=== PATIENT | male | born 1975 | race Caucasian/White ===

== ENCOUNTER 2019-03-22 20:56 | Emergency (ER) | payer OTHER ==
--- NOTE | 2019-03-22 21:12 | ED ---
Neurological HPI - HPI Summary HPI Summary: Ernie Angelo called at 20:40, with ETA [address] Lopez saw pt as soon as he arrived at 20:56. This patient is a 43 year old M presenting to [facility] by EMS with a chief complaint of impaired speech since 1999. According to EMS, pt was watching a baseball game, when all of a sudden he could not talk. EMS also report pts right side was weaker, and slight facial droop. Pt could not properly answer questions about when symptoms began, or his address. - History of Current Complaint Stated Complaint: CVA PER EMS Time Seen by Provider: 03/22/19 20:58 Hx Obtained From: Patient Onset/Duration: Sudden Onset Timing: Intermittent Episodes Lasting: Current Severity: None Neurological Deficit Location: Facial Character: Impaired Speech Aggravating: Nothing Alleviating: Spontanious Resolution Associated Signs and Symptoms: Positive: Impaired Speech - Allergy/Home Medications Allergies/Adverse Reactions: Allergies Allergy/AdvReac Type Severity Reaction Status Date / Time No Known Allergies Allergy Verified 03/22/19 21:15 Home Medications: Home Medications Clopidogrel TAB* [Plavix TAB*] 75 mg PO DAILY 03/22/19 [History Confirmed ] Metformin HCl 1,000 mg PO BID 03/22/19 [History Confirmed 03/22/19] PMH/Surg Hx/FS Hx/Imm Hx Cardiovascular History: Reports: Hx Deep Vein Thrombosis, Hx Myocardial Infarction Sensory History: Denies: Hx Legally Blind EENT History: Denies: Hx Deafness - Surgical History Surgery Procedure, Year, and Place: Stent, 2019, [place] - Family History Known Family History: Positive: Blood Disorder - Social History Occupation: Employed Full-time Alcohol Use: Occasionally Hx Substance Use: No Substance Use Type: Reports: None Hx Tobacco Use: Yes Smoking Status (MU): Light Every Day Tobacco Smoker Type: Cigarettes Amount Used/How Often: 6-7 daily Review of Systems Negative: Fever Neurological: Other - facial droop Positive: Weakness, Slurred Speech All Other Systems Reviewed And Are Negative: Yes Physical Exam - Summary Physical Exam Summary: VITAL SIGNS: Reviewed. GENERAL: Patient is a well-developed and nourished male who is lying comfortable in the stretcher. Patient is not in any acute respiratory distress. HEAD AND FACE: No signs of trauma. No ecchymosis, hematomas or skull depressions. No sinus tenderness. EYES: PERRLA, EOMI x 2, No injected conjunctiva, no nystagmus. EARS: Hearing grossly intact. Ear canals and tympanic membranes are within normal limits. MOUTH: Oropharynx within normal limits. NECK: Supple, trachea is midline, no adenopathy, no JVD, no carotid bruit, no c- spine tenderness, neck with full ROM CHEST: Symmetric, no tenderness at palpation LUNGS: Clear to auscultation bilaterally. No wheezing or crackles. CVS: Regular rate and rhythm, S1 and S2 present, no murmurs or gallops appreciated. ABDOMEN: Soft, non-tender. No signs of distention. No rebound no guarding, and no masses palpated. Bowel sounds are normal. EXTREMITIES: FROM in all major joints, no edema, no cyanosis or clubbing. NEURO: Right facial droop, right upper extremity drift, mild aphasia, and mild dysarthria. SKIN: Dry and warm Triage Information Reviewed: Yes Vital Signs On Initial Exam: Initial Vital Signs Temp 98.5 F 03/22/19 21:00 Pulse 103 03/22/19 21:00 Resp 20 03/22/19 21:00 BP 137/82 03/22/19 21:00 Pulse Ox 98 03/22/19 21:00 Vital Signs Reviewed: Yes - Suzie Coma Scale Best Eye Response: 4 - Spontaneous Best Motor Response: 6 - Obeys Commands Best Verbal Response: 5 - Oriented Coma Scale Total: 15 Diagnostics - Laboratory Result Diagrams: 03/22/19 21:17 03/22/19 21:17 Lab Statement: Any lab studies that have been ordered have been reviewed, and results considered in the medical decision making process. - CT Brain CT CT Interpretation Completed By: Radiologist Summary of CT Findings: Brain CT reveals, per radiologist, IMPRESSION: 1. Punctate hyperdensity of the right MCA at the right sylvian fissure. If. there is clinical concern for right MCA infarction, MRI/MRA may be considered. 2. No acute intracranial hemorrhage. ED physician has reviewed this radiology report. - EKG 2114 Cardiac Rate: NL - 93 bpm EKG Rhythm: Sinus Rhythm Summary of EKG Findings: An EKG at 21:15 reveals sinus rhythm 93 bpm, Q-waves in inferior lead, IVCD. National Institutes Of Health - NIH Scale Level of Consciousness: Alert/Keenly Responsive Ask Patient the Month and His/Her Age: Both Correct Ask Pt to Open/Close Eyes and Base Brander/Release Non-Paretic Hand: Both Correctly Best Gaze (Only Horizontal Eye Movement): Normal Visual Field Testing: No Visual Loss Facial Paresis-Pt to Smile & Close Eyes or Grimace Symmetry: Normal/Symmetrical - right side. Motor Function - Right Arm: No Drift-Holds 10 Seconds Motor Function - Left Arm: No Drift-Holds 10 Seconds Motor Function - Right Leg: No Drift-Holds 10 Seconds Motor Function - Left Leg: No Drift-Holds 10 Seconds Limb Ataxia-Must be out of Proportion to Weakness Present: Absent Sensory (Use Pinprick to Test Arms/Legs/Trunk/Face): Normal Best Language (Describe Picture, Name Items): No Aphasia Dysarthria (Read Several Words): Normal - evaluation done when patient came back from CAT scan to room #14. Extinction and Inattention: No Abnormality Total Score: 0 NIH Scale - NIH Scale Level of Consciousness: Alert/Keenly Responsive Ask Patient the Month and His/Her Age: Both Correct Ask Pt to Open/Close Eyes and Base Brander/Release Non-Paretic Hand: Both Correctly Best Gaze (Only Horizontal Eye Movement): Normal Visual Field Testing: No Visual Loss Facial Paresis-Pt to Smile & Close Eyes or Grimace Symmetry: Minor Paralysis - right side. Motor Function - Right Arm: Drifts LT 10 seconds Motor Function - Left Arm: No Drift-Holds 10 Seconds Motor Function - Right Leg: No Drift-Holds 10 Seconds Motor Function - Left Leg: No Drift-Holds 10 Seconds Limb Ataxia-Must be out of Proportion to Weakness Present: Absent Sensory (Use Pinprick to Test Arms/Legs/Trunk/Face): Normal Best Language (Describe Picture, Name Items): Some Loss Dysarthria (Read Several Words): Slurs Some Words Extinction and Inattention: No Abnormality Total Score: 4 NIH Stroke Scale Comment: Evaluation was done on the ambulance stretcher once patient got to the emergency room. Just before him going to CAT scan. Re-Evaluation - Re-Evaluation First Eval Re-Evaluation Time: 21:07 Change: Improved Comment: After imaging, nuero exam was repeated. Neuro deficit completely resolve, no mild aphasia, and no mild dysarthria. no drift and able to walk with no problem. Pt reported he had heart attack and had a stent place on 03/14/19 at [place] and was discharged Thursday. Pt takes Coumadin, Plavix and baby aspirin Second Eval Re-Evaluation Time: 21:40 Change: Worse Comment: Pt has mild dysarthria and mild right facial droop. Course/Dx - Course Course Of Treatment: Ernie Angelo called at 20:40, with ETA [address] Lopez saw pt as soon as he arrived at 20:56. This patient is a 43 year old M presenting to [facility] by EMS with a chief complaint of impaired speech since 1999. According to EMS, pt was watching a baseball game, when all of a sudden he could not talk. EMS also report pts right side was weaker, and slight facial droop. Pt could not properly answer questions about when symptoms began, or his address. Physical Exam Findings upon arrival are right facial droop, right upper extremity drift, mild aphasia, and mild dysarthria. Physical Exam Findings after imaging, nuero exam was repeated. Neuro deficit completely resolve, no mild aphasia, and no mild dysarthria. no drift and able to walk with no problem. Pt also report he had heart attack and had a stent place on 03/14/19 at [place] and was discharged Thursday. Pt takes Coumadin, Plavix and baby aspirin. An EKG at 21:15 reveals sinus rhythm 93 bpm, Q-waves in inferior lead, IVCD. Brain CT reveals, per radiologist, IMPRESSION: 1. Punctate hyperdensity of the right MCA at the right sylvian fissure. If. there is clinical concern for right MCA infarction, MRI/MRA may be considered. 2. No acute intracranial hemorrhage. Discussed pt's case with Dr. Gunn. During discussion pts nurse reported pt had slurred speech again, and pt was re- evaluated. Pt has mild dysarthria and mild right facial droop. Since pt has a INR of 3.8, not a candidate for thrombolysis, and pt symptoms fluctuating. Dr. Gunn accepts pt and he will be transferred to [facility] for possible intervention. Dr. Gunn recommends no medications at this time. Dr Gunn stated no need to do a CTA head and Neck. No helicopter available due to weather conditions, pt will be going ground. Pt will be transferred to [facility]. The patient is agreeable with this plan. - Diagnoses Provider Diagnoses: CVA (cerebral vascular accident) - Physician Notifications Discussed Care Of Patient With: Dr. Luis Gunn Time Discussed With Above Provider: 21:35 Instructed by Provider To: Other - Discussed pt's case with Dr. Gunn. During discussion pts nurse reported pt had slurred speech again, and pt was re- evaluated. Pt has mild dysarthria and mild right facial droop. Since pt has a INR of 3.8, not a candidate for thrombolysis,and pt symptoms fluctuating. Dr. Gunn accepts pt and he will be transferred to [facility] for possible intervention. Dr. Gunn recommends no medication at this time. Dr Gunn stated no need to do a CTA Head and Neck Discharge - Sign-Out/Discharge Documenting (check all that apply): Patient Departure - transfer Patient Received Moderate/Deep Sedation with Procedure: No - Discharge Plan Condition: Stable Disposition: TRANS HIGHER LVL OF CARE FAC Referrals: Jillian Nugnet PA [Primary Care Provider] - - Billing Disposition and Condition Condition: STABLE Disposition: Trans Higher Lvl of Care Fac - Attestation Statements Document Initiated by Paulettee: Yes Documenting Scribe: Simi Esparza Provider For Whom Winter is Documenting (Include Credential): Dr. Delores Lopez MD Scribe Attestation: Simi Dwyer scribed for Dr. Delores Lopez MD on 03/22/19 at 2213. Scribe Documentation Reviewed: Yes Provider Attestation: The documentation as recorded by the Simi ibrahim accurately reflects the service I personally performed and the decisions made by me, Dr. Delores Lopez MD Status of Scribe Document: Viewed
[2019-03-22 21:22] LABS: ABS Basophils 0.1 10^3/ul (0-0.2); ABS Eosinophils 0.2 10^3/ul (0-0.6); ABS Lymphocytes 2.6 10^3/ul (1.0-4.8); ABS Monocytes 0.5 10^3/ul (0-0.8); Eosinophil % 2.1 %; Hematocrit 43 % (42-52); Hemoglobin 14.6 g/dL (14.0-18.0); Mean Corpuscular HGB Conc 34 g/dL (31-36); Mean Corpuscular Hemoglobin 28 pg (27-31); Mean Corpuscular Volume 84 fL (80-94); Mean Platelet Volume 8.1 fL (7.4-10.4); Nucleated Red Blood Cells % 0.1; Platelet Count 171 10^3/uL (150-450); Red Blood Count 5.16 10^6 /uL (4.18-5.48); Red Cell Distribution Width 15 % (10-15); White Blood Count 9.5 10^3/uL (3.5-10.8)
[2019-03-22 21:35] LABS: Activated Partial Thrombo Time 51.6 seconds (26.0-38.0); INR 3.82 (0.82-1.09)
[2019-03-22 21:39] LABS: Albumin 4.6 g/dL (3.2-5.2); Albumin/Globulin Ratio 1.1 (1-3); BUN/Creatinine Ratio 11.6 (8-20); Calcium 10.4 mg/dL (8.6-10.3); EGFR African American 67.7 (>60); Globulin 4.2 g/dL (2-4); HDL Cholesterol 30.7 mg/dL; Potassium 3.9 mmol/L (3.5-5.0); Total Bilirubin 0.7 mg/dL (0.2-1.0); Total Protein 8.8 g/dL (6.4-8.9)
[2019-03-22] MEDS ORDERED: Iodixanol* (CONTRAST) 320 MG/ML 100 ML SDV IV ONE (21:44)
[2019-03-22 22:40] VITALS: BP 120/76
== END 2019-03-22 22:55 | disposition short-term general hospital (02) ==
LOC: ED 20:56
DX: I63.9 Cerebral infarction, unspecified (principal); F17.210 Nicotine dependence, cigarettes, uncomplicated; Z79.899 Other long term (current) drug therapy; I25.2 Old myocardial infarction; Z86.718 Personal history of other venous thrombosis and embolism
CPT/HCPCS: 36415; 70450; 71045; 80053; 80061; 83605; 84484; 85025; 85610; 85730; 93005; 99285